=== PATIENT | male | born 1975 | race Asian ===

== ENCOUNTER 2020-05-29 10:25 | Emergency (ER) | payer OTHER ==
[~2020-05-29] VITALS: Ht 180.3 cm; Wt 90.7 kg
[2020-05-29 10:30] VITALS: TEMP 99.1
[2020-05-29 11:40] VITALS: BP 138/88
== END 2020-05-29 11:40 | disposition home or self-care (01) ==
LOC: ED 10:25
PROC: 0HQGXZZ Repair Left Hand Skin, External Approach (ICD-10-PCS; principal; 2020-05-29)
DX: S61.211A Laceration without foreign body of left index finger without damage to nail, initial encounter (principal); W23.0XXA Caught, crushed, jammed, or pinched between moving objects, initial encounter; Y92.89 Other specified places as the place of occurrence of the external cause
CPT/HCPCS: 96372; 99283; J0696